=== PATIENT | female | born 1935 | race Caucasian/White ===

== ENCOUNTER 2016-10-17 01:43 | Emergency (ER) | payer OTHER ==
[2016-10-17] MEDS ORDERED: ASPIRIN PO STA (01:59)
[2016-10-17] MEDS ORDERED: NITROGLYCERIN SL PRN (01:59)
[2016-10-17 02:26] LABS: MANUAL DIFF NEEDED? NO
[2016-10-17 02:30] LABS: BASO% 0.2 % (0.0-0.8); EOS# 0.48 X1000 (0.0-0.7); EOS% 10.7 % (0.0-10.0); HEMATOCRIT 39.4 % (37.0-47.0); HEMOGLOBIN 13.4 g/dL (12.0-16.0); LYMPH# 1.07 X1000 (1.2-3.4); LYMPH% 23.8 % (20.5-51.1); MCH 29.5 PG (27-31); MCV 86.8 FL (81-99); MONO# 0.46 X1000 (0.11-0.59); MONO% 10.2 % (1.7-9.3); MPV 9.5 FL (7.4-10.4); NEUT% 55.1 % (42.2-75.2); PLT 256 X1000 (130-400); RBC 4.54 XMIL (4.2-5.4)
--- NOTE | 2016-10-17 02:32 | PROVIDER DOCUMENTATION ---
HPI-Cardiac General - General Chief Complaint: Defib. Malfunction Stated Complaint: DEFIBULATOR WENT OFF Time Seen by Provider: 10/17/16 01:59 Source: patient Allergies/Adverse Reactions: Patient Allergies Allergy/AdvReac Type Severity Reaction Status Date / Time acetaminophen [From Percocet] Allergy Intermediate VOMITING Verified 10/17/16 02 :22 codeine Allergy Intermediate VOMITING Verified 10/17/16 02:22 hydrocodone bitartrate * Allergy Intermediate VOMITING Verified 10/17/16 02:22 [From Lortab] oxycodone HCl * Allergy Intermediate VOMITING Verified 10/17/16 02:22 [From Percocet] adhesive Allergy Mild RASH Verified 10/17/16 02:22 latex Allergy Mild RASH Verified 10/17/16 02:22 amiodarone Allergy RASH Verified 10/17/16 03:00 Home Medications: Home Medication List Medication Instructions Recorded Confirmed Last Taken Type Acetaminophen E.r. [Tylenol 650 mg PO PRN PRN 04/01/14 10/17/16 08/16/14 03:00 History Arthritis] Atorvastatin Calcium [Lipitor] 40 mg PO QHS 04/01/14 10/17/16 10/16/16 History Calcium Cit/Mag/D3/Zn/Milieu Technician/Gilbert 1 each PO TID 04/01/14 10/17/16 10/16/16 History [Calcium Citrate Plus Tablet] Clopidogrel Bisulfate [Plavix] 75 mg PO DAILY 04/01/14 10/17/16 10/16/16 History Cyanocobalamin/Folic Acid [Vitamin 1 each PO QHS 04/01/14 10/17/16 10/16/16 History G22-Rapft Acid Tablet] [place]-3S/Dha/Epa/Fish Oil/D3 [Fish 1 each PO TID 04/01/14 10/17/16 10/16/16 History [id number]-8-Vit D Softgel] Cetirizine HCl [Zyrtec] 10 mg PO QHS 08/16/14 10/17/16 10/17/16 History Potassium Chloride [Klor-Con] 20 meq PO DAILY #0 packet 08/17/14 10/17/16 Rx Ferric Citrate [Auryxia] 1 tab PO BID 02/16/15 10/17/16 10/16/16 History Warfarin Sodium 3 tab PO HS 0710/17/16 10/16/16 History Digoxin 125 mcg PO DAILY 07/07/16 10/17/16 10/16/16 History Sacubitril/Valsartan [Entresto 24 1 each PO BID 07/07/16 10/17/16 10/16/16 History mg-26 mg Tablet] Levothyroxine Sodium [Levothroid] 100 mcg PO DAILY #0 07/09/16 10/17/16 Rx Metolazone [Zaroxolyn] 2.5 mg PO MoWeFr@09 #30 tablet 07/09/16 10/17/16 Rx Furosemide [Lasix] 20 mg PO DAILY 10/17/16 10/17/16 10/16/16 History - History of Present Illness-Cardiac Nature of Presenting Problem: Pt is a 81 yof who presents to ER with CC of her defibrillator firing without known cause. Pt reports that she has felt a little lethargic all day, but no acute symptoms. Pt reports that when she was about to go to bed, just walking out of the bathroom, and her defibrillator discharged twice. Pt denies any chest pain on exam. Severity in ED: mild Review of Systems - Adult - REVIEW OF SYSTEMS - ADULT Constitutional: denies: chills, fever, fatique, night sweats, weight gain, weight loss Eyes: reports: no symptoms reported Ears, Nose, Mouth & Throat: reports: no symptoms reported Cardiovascular: reports: chest pain, irregular heart rate. denies: edema, heart murmur, orthopnea, palpitations, poor circulation, PND, syncope Respiratory: denies: chronic cough, cough, dyspnea on exertion, excessive sputum production, hemoptysis, pleurisy, shortness of breath, wheezing Gastrointestinal: reports: no symptoms reported Genitourinary: reports: no symptoms reported Musculoskeletal: reports: muscle aches. denies: bone pain, back pain, frequent leg cramps, joint pain, joint swelling, muscle weakness, neck pain Integumentary: reports: no symptoms reported Neurological: reports: no symptoms reported Psychiatric: reports: no symptoms reported Endocrine: reports: no symptoms reported Hematologic/Lymphatic: reports: no symptoms reported Allergic/Immunologic: reports: no symptoms reported All Other Systems: Reviewed and Negative Past History - Adult - PAST MEDICAL HISTORY-ADULT Review of Records: reports: Nursing Assessment Review, Medications Reviewed Cardiovascular: reports: CAD, CHF, HTN, heart valve problem, hyperlipidemia, pacemaker Gastrointestinal: reports: GERD Obstetrical/Gynecological: reports: other (left breast ca) - PRIOR SURGERIES/PROCEDURES Surgical/Procedure History: reports: pacemaker, hysterectomy, other (aicd, masectomy) - PRIOR HOSPITALIZATIONS Prior Hospitalizations: reports: for other non-related - IMMUNIZATION STATUS Childhood Immunizations: See Nurse Assessment Flu Vaccine: See Nurse Assessment Physical Exam-General - PHYSICAL EXAM-ADULT Initial Vital Signs Reviewed: Yes - CONSTITUTIONAL General Appearance: appears well, alert, moderate distress. negative: no apparent distress, mild distress, lethargic, slow to respond, obtunded, combative - NECK Neck: non-tender, full range of motion, supple - RESPIRATORY Respiratory: lungs clear, normal breath sounds, wheezing (mild-moderate chest tenderness on palpation). negative: chest non-tender, respiratory distress, decreased breath sounds, accessory muscle use - CARDIOVASCULAR Cardiovascular: normal peripheral pulses, regular rate, rhythm. negative: bradycardia, tachycardia - CHEST (BREASTS) Chest/Breast: no masses/lumps, tenderness (Central/generalized chest tender on palpation). negative: no tenderness - GASTROINTESTINAL (ABDOMEN) Abdominal Exam: normal bowel sounds, non tender, soft. negative: tenderness, mass - MUSCULOSKELETAL Back Exam: no CVA tenderness, no vertebral tenderness. negative: CVA tenderness , decreased range of motion, muscle spasm, swelling, vertebral tenderness Extremity: normal range of motion, non-tender, normal gait - NEUROLOGIC Neurologic: grossly normal, no motor/sensory deficits. negative: facial droop, focal weakness, motor weakness, sensory deficit - PSYCHIATRIC Psych/Mental Status: normal thought content, normal thought process, oriented x 3, anxious. negative: normal mood/affect Progress - PLAN OF CARE/RESULTS Progress/Plan/Lab Results: Orders Category Date Time Status Cardiac Monitoring DIRECTED Care 10/17/16 01:59 Active Saline Loc NOW Care 10/17/16 01:59 Active CHEST-1 VIEW [RAD] Stat Exams 10/17/16 01:59 Completed CBC WITH ELECTRONIC DIFF [HEME] Stat Lab 10/17/16 02:14 Completed CK PROFILE [SP CHEM] Stat Lab 10/17/16 02:14 Completed COMPREHENSIVE METABOLIC PANEL [CHEM] Stat Lab 10/17/16 02:14 Completed D-DIMER [CHEM] Stat Lab 10/17/16 02:14 Completed MAGNESIUM [CHEM] Stat Lab 10/17/16 02:14 Completed PRO B-NATRIURETIC PEPTIDE Stat Lab 10/17/16 02:14 Completed PROTIME WITH INR [COAG] Stat Lab 10/17/16 02:14 Completed PTT [COAG] Stat Lab 10/17/16 02:14 Completed TROPONIN T Stat Lab 10/17/16 02:14 Completed Amiodarone 360 mg/D5w [Cordarone 360 mg/D5w] 200 ml Med 10/17/16 02:35 Discontinued IV ONCE Amiodarone [Cordarone] Med 10/17/16 02:34 Discontinued 150 mg IV NOW ONE Aspirin Med 10/17/16 01:59 Discontinued 325 mg PO STAT STA Diltiazem 100 mg/Ns [Cardizem 100 mg/Ns] 100 ml Med 10/17/16 05:22 Discontinued .ROUTE As Directed Diltiazem 100 mg/Ns [Cardizem 100 mg/Ns] 100 ml Med 10/17/16 03:00 Discontinued IV As Directed Diltiazem [Cardizem] Med 10/17/16 02:45 Discontinued 10 mg IV NOW ONE Nitroglycerin Sl [Nitroglycerin] Med 10/17/16 01:59 Discontinued 0.4 mg SL Q5M PRN PRN EKG [EKG] Stat Ther 10/17/16 01:59 Draft Laboratory Tests 10/17/16 10/17/16 10/17/16 02:14 02:14 02:14 WBC 4.50 L RBC 4.54 Hgb 13.4 Hct 39.4 MCV 86.8 MCH 29.5 MCHC 34.0 RDW Std Deviation 14.1 Plt Count 256 MPV 9.5 Immature Gran % (Auto) 0.0 Neut % (Auto) 55.1 Lymph % (Auto) 23.8 [place] % (Auto) 10.2 H Eos % (Auto) 10.7 H Baso % (Auto) 0.2 Immature Gran # (Auto) 0.00 Neut # (Auto) 2.48 Lymph # (Auto) 1.07 L [place] # (Auto) 0.46 Eos # (Auto) 0.48 Baso # (Auto) 0.01 PT INR PTT (Actin FS) D-Dimer 0.21 Sodium 142 Potassium 3.2 L Chloride 100 Carbon Dioxide 26 Anion Gap 16 BUN 22 Creatinine 1.1 H Estimated GFR/1.73 m2 48 BUN/Creatinine Ratio 20 Glucose 136 H Calculated Osmolality 289 Calcium 9.5 Magnesium 1.5 Total Bilirubin 0.34 AST 15 ALT 14 Alkaline Phosphatase 48 Creatine Kinase 40 Troponin T Vfy-H-Wliytjxmhqz Pept Total Protein 8.0 Albumin 4.0 Globulin 4.0 Albumin/Globulin Ratio 1.0 10/17/16 10/17/16 10/17/16 02:14 02:14 02:14 WBC RBC Hgb Hct MCV MCH MCHC RDW Std Deviation Plt Count MPV Immature Gran % (Auto) Neut % (Auto) Lymph % (Auto) [place] % (Auto) Eos % (Auto) Baso % (Auto) Immature Gran # (Auto) Neut # (Auto) Lymph # (Auto) [place] # (Auto) Eos # (Auto) Baso # (Auto) PT 31.6 H INR 3.17 PTT (Actin FS) 42.1 H D-Dimer Sodium Potassium Chloride Carbon Dioxide Anion Gap BUN Creatinine Estimated GFR/1.73 m2 BUN/Creatinine Ratio Glucose Calculated Osmolality Calcium Magnesium Total Bilirubin AST ALT Alkaline Phosphatase Creatine Kinase Troponin T < 0.010 [id number]-Dlnbrlwkluz Pept 1981 H Total Protein Albumin Globulin Albumin/Globulin Ratio - CONSULTS/PCP/HOSPITALIST Notification #1 *Consult/PCP/Hospitalist*: Dr. Ghosh ([employer]) Time Discussed: 02:31 Consult Disposition: other (Recommended to start pt on amiodarone drip) #2 Consult: Dr. Ghosh ([employer]) Time Discussed: 02:46 Consult Disposition: other (Dr. Chilel informed pt is allergic to amiodarone; Dr. Ghosh recommends to put pt on Cardizem) Departure - Departure Time of Disposition Order: 05:07 DIAGNOSIS: Pacemaker complications Qualifiers: Encounter type: initial encounter Qualified Code(s): T82.9XXA - Unspecified complication of cardiac and vascular prosthetic device, implant and graft, initial encounter Disposition: [facility] 02 Certified Medical Emergency: Emergent Condition: Stable Referrals: Corona Pretty MD [Primary Care Provider] - Attestation - Scribe Verification/Attestation Scribe:: Gibson Heller Acting as Scribe for:: Cristian Chilel Scribe documention review:: This chart was documented by a scribe and accurately reflects the service the provider performed and the decisions made by the provider.
[2016-10-17] MEDS ORDERED: CORDARONE IV ONE (02:34)
[2016-10-17] MEDS ORDERED: CORDARONE 360 MG/D5W 200 ML IV ONE (02:35)
[2016-10-17] MEDS ORDERED: CARDIZEM IV ONE (02:45)
[2016-10-17 02:50] LABS: CALCIUM 9.5 mg/dL (8.8-10.2); MAGNESIUM 1.5 mg/dL (1.5-2.7); POTASSIUM 3.2 mmol/L (3.5-5.1); TOTAL BILIRUBIN 0.34 mg/dL (0.20-1.00)
[2016-10-17 02:59] LABS: INR 3.17; PROTIME 31.6 Seconds (9.2-11.7); PTT 42.1 Seconds (22.0-36.0)
[2016-10-17] MEDS ORDERED: CARDIZEM 100 MG/NS 100 ML IV SCH (03:00)
[2016-10-17 05:01] VITALS: BP 108/67
[2016-10-17] MEDS ORDERED: CARDIZEM 100 MG/NS 100 ML ONE (05:22)
--- NOTE | 2016-10-17 09:08 | EKG Report ---
Test Performed on : 10/17/2016 01:57:07 AM Test Reason : Chest Pain Blood Pressure : / mmHG Vent. Rate : 145 BPM Atrial Rate : 163 BPM P-R Int : 000 ms QRS Dur : 148 ms QT Int : 372 ms P-R-T Axes : 000 -17 175 degrees QTc Int : 577 ms Wide QRS tachycardia. Left bundle branch block Abnormal ECG When compared with ECG of 07-JUL-2016 10:20, Wide QRS tachycardia. has replaced Electronic ventricular pacemaker Vent. rate has increased BY 56 BPM Unconfirmed Result
--- NOTE | 2016-10-17 09:21 | Diag Imaging Result Document ---
PROCEDURE NAME: CHEST-1 VIEW - 10/17/2016 PORTABLE CHEST X-RAY, 10/17/2016: COMPARISON: 07/09/2016. FINDINGS: Stable pacemaker. Heart size remains top normal. There is decrease in the ill-defined central infiltrates/edema. Lungs are now essentially clear. IMPRESSION: Continued improvement from prior.
== END 2016-10-17 05:07 | disposition short-term general hospital (02) ==
LOC: ED 01:43
DX: T82.9XXA Unspecified complication of cardiac and vascular prosthetic device, implant and graft, initial encounter (principal); I48.91 Unspecified atrial fibrillation; R53.83 Other fatigue; I25.10 Atherosclerotic heart disease of native coronary artery without angina pectoris; I50.9 Heart failure, unspecified; I10 Essential (primary) hypertension; E78.5 Hyperlipidemia, unspecified; Z95.0 Presence of cardiac pacemaker; Z85.3 Personal history of malignant neoplasm of breast; Z79.899 Other long term (current) drug therapy; Z90.10 Acquired absence of unspecified breast and nipple; Z95.810 Presence of automatic (implantable) cardiac defibrillator; Z79.01 Long term (current) use of anticoagulants; Z79.02 Long term (current) use of antithrombotics/antiplatelets; R07.9 Chest pain, unspecified
CPT/HCPCS: 71010; 80053; 82550; 83735; 83880; 84484; 85025; 85379; 85610; 85730; 93005; 96365; 96375